=== PATIENT | female | born 1980 | race Caucasian/White ===

== ENCOUNTER 2021-04-20 02:12 | Emergency (ER) | payer BC ==
--- NOTE | 2021-04-20 02:40 | EDM.PDOC ---
ED HPI GENERAL MEDICAL PROBLEM - General Chief Complaint: Abdominal Pain Stated Complaint: ABDOMINAL PAIN/ NAUSEA/ WEAK Time Seen by Provider: 04/20/21 02:34 - History of Present Illness INITIAL COMMENTS - FREE TEXT/NARRATIVE: 40-year-old female presents the emergency room with epigastric pain nausea and discomfort. This is been going on for the last 8 days or so now it is interfering with her sleeping and getting some rest. Her appetite is diminished but no nausea no vomiting she is not had any black or tarry stools. She does not have any clear- cut reflux symptoms. She is not had any breathing difficulties shortness of breath chest pain. She has had no problems with constipation diarrhea no black or tarry stools. She is not aware of problems such as this in the past. No recent abdominal surgeries, however, she has had her gallbladder taken out she has had a hysterectomy and has had C-sections. Epigastric Pain Score (Numeric/FACES): 6 - Related Data Allergies Allergy/AdvReac Type Severity Reaction Status Date / Time codeine Allergy Mild Itching Verified 04/20/21 04:05 Home Meds: Home Meds Hydrocodone/Acetaminophen [HYDROcodone-Acetaminophen 5-325 MG] 1 each PO Q6H PRN #10 tab 04/20/21 [Rx] Ondansetron [Ondansetron ODT] 4 mg PO Q6H PRN #15 tab.rapdis 04/20/21 [Rx] ED ROS GENERAL - Review of Systems Review Of Systems: See Below Constitutional: Denies: Fever, Chills, Fatigue, Night Sweats HEENT: Reports: No Symptoms Respiratory: Reports: No Symptoms Cardiovascular: Reports: No Symptoms GI/Abdominal: Reports: Abdominal Pain, Decreased Appetite. Denies: Bloody Stool, Diarrhea, Difficulty Swallowing, Hematemesis, Hematochezia, Vomiting : Reports: No Symptoms Musculoskeletal: Reports: No Symptoms Neurological: Reports: No Symptoms ED EXAM, GENERAL - Physical Exam Exam: See Below Exam Limited By: No Limitations General Appearance: Alert, No Apparent Distress, Obese Head: Atraumatic, Normocephalic Neck: Normal Inspection, Supple, Non-Tender, Full Range of Motion Respiratory/Chest: No Respiratory Distress, Lungs Clear, Normal Breath Sounds Cardiovascular: Regular Rate, Rhythm, No Edema, No Murmur GI/Abdominal: Normal Bowel Sounds, Soft, Tender (Palpable tenderness limited to the mid epigastric area only). No: Distended, Guarding, Rigid, Rebound Back Exam: No: CVA Tenderness (L), CVA Tenderness (R) Neurological: Alert, Oriented, Normal Cognition Course - Vital Signs Last Recorded V/S: Last Vital Signs Temp 37.1 C 04/20/21 07:39 Pulse 61 04/20/21 07:39 Resp 18 04/20/21 07:39 BP 116/72 04/20/21 07:39 Pulse Ox 97 04/20/21 07:39 - Orders/Labs/Meds Orders: Active Orders 24 hr Category Date Time Status COVID-19/FLU A+B [[facility]] Stat Lab 04/20/21 03:00 Ordered Labs: Laboratory Tests 04/20/21 04/20/21 04/20/21 Range/Units 02:20 02:20 02:34 WBC 8.00 (3.98-10.04) K/mm3 RBC 4.84 (3.98-5.22) M/mm3 Hgb 14.8 (11.2-15.7) gm/dl Hct 43.8 (34.1-44.9) % MCV 90.5 (79.4-94.8) fl MCH 30.6 (25.6-32.2) pg MCHC 33.8 (32.2-35.5) g/dl RDW Std Deviation 39.3 (36.4-46.3) fL Plt Count 364 (182-369) K/mm3 MPV 8.4 L (9.4-12.3) fl Neut % (Auto) 48.6 (34.0-71.1) % Lymph % (Auto) 34.0 (19.3-51.7) % Sawyer % (Auto) 10.6 (4.7-12.5) % Eos % (Auto) 5.6 (0.7-5.8) Baso % (Auto) 0.6 (0.1-1.2) % Neut # (Auto) 3.88 (1.56-6.13) K/mm3 Lymph # (Auto) 2.72 (1.18-3.74) K/mm3 Sawyer # (Auto) 0.85 H (0.24-0.36) K/mm3 Eos # (Auto) 0.45 H (0.04-0.36) K/mm3 Baso # (Auto) 0.05 (0.01-0.08) K/mm3 Sodium 140 (136-145) mEq/L Potassium 4.4 (3.5-5.1) mEq/L Chloride 104 (98-107) mEq/L Carbon Dioxide 24 (21-32) mEq/L Anion Gap 16.4 H (5-15) BUN 14 (7-18) mg/dL Creatinine 0.9 (0.55-1.02) mg/dL Est Cr Clr Drug Dosing 81.61 mL/min Estimated GFR (MDRD) > 60 (>60) mL/min BUN/Creatinine Ratio 15.6 (14-18) Glucose 111 H (70-99) mg/dL Calcium 9.0 (8.5-10.1) mg/dL Total Bilirubin 0.5 (0.2-1.0) mg/dL AST 14 L (15-37) U/L ALT 25 (14-59) U/L Alkaline Phosphatase 69 (46-116) U/L Total Protein 7.2 (6.4-8.2) g/dl Albumin 4.1 (3.4-5.0) g/dl Globulin 3.1 gm/dL Albumin/Globulin Ratio 1.3 (1-2) Lipase 83 (73-393) U/L Influenza Type A RNA Negative (NEGATIVE) Influenza Type B RNA Negative (NEGATIVE) SARS-CoV-2 RNA ([place]) Negative (NEGATIVE) Meds: Medications Discontinued Medications Generic Name Dose Route Start Last Admin Trade Name Freq PRN Reason Stop Dose Admin Hydrocodone Bitart/Acetaminophen 1 tab 04/20/21 05:35 04/20/21 05:51 Acetaminophen/Hydrocodone 325-5 Mg Tab PO 04/20/21 05:36 1 tab ONETIME ONE Administration Al Hydroxide/Mg Hydroxide 30 0 ml 04/20/21 02:46 04/20/21 02:52 ml/ Lidocaine HCl 15 ml PO 04/20/21 02:47 30 ml ONETIME ONE Administration Famotidine 40 mg 04/20/21 05:35 04/20/21 05:50 Famotidine 20 Mg/2 Ml Sdv IVPUSH 04/20/21 05:36 40 mg ONETIME ONE Administration Lactated Ringer's 1,000 mls @ 999 mls/hr 04/20/21 04:58 04/20/21 05:04 Ringers, Lactated IV 04/20/21 05:58 999 mls/hr .BOLUS ONE Administration Ondansetron HCl 4 mg 04/20/21 04:47 04/20/21 04:52 Ondansetron 4 Mg Tab.Dis PO 04/20/21 04:48 4 mg ONETIME ONE Administration Pantoprazole Sodium 40 mg 04/20/21 03:08 04/20/21 03:14 Pantoprazole 40 Mg Vial IVPUSH 04/20/21 03:09 40 mg ONETIME ONE Administration - Re-Assessments/Exams Free Text/Narrative Re-Assessment/Exam: 04/20/21 03:07 Labs ordered attempted a GI cocktail this has not helped she is nauseated 04/20/21 07:06 After the failed GI cocktail labs were nonrevealing. She was given Zofran. IV Protonix however this seemed to cause a headache. She was given IV Pepcid and Ennis and tolerated this she has a allergy to codeine. Codeine reaction was a rash and itching no breathing difficulties or shortness of breath we gave her a Ennis and this helped she is able to keep fluids down headache is much better and her abdominal pain is much better. Departure - Departure Time of Disposition: 07:12 Disposition: Home, Self-Care 01 Clinical Impression: Acute gastroenteritis, Gastritis, Nausea & vomiting - Discharge Information Prescriptions: Hydrocodone/Acetaminophen [HYDROcodone-Acetaminophen 5-325 MG] 1 each PO Q6H PRN #10 tab PRN Reason: Abdominal Pain Ondansetron [Ondansetron ODT] 4 mg PO Q6H PRN #15 tab.rapdis PRN Reason: Nausea/Vomiting Instructions: Nausea and Vomiting, Adult, [id number] Referrals: Jessie Draper PA-C [Primary Care Provider] - Forms: ED Department Discharge, ED Return to Work/School Form Additional Instructions: Return to the emergency room with any questions problems or worsening symptoms. Use the Zofran as needed to control nausea and vomiting for the next day or so use it every 6 hours and then as needed. Use the hydrocodone only as needed for pain take 1 every 6 hours. Allow 12 hours after using this medication before driving or returning to work. 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 This will help your stomach calm down. Sepsis Event Note (ED) - Evaluation Sepsis Screening Result: No Definite Risk - Focused Exam Vital Signs: Vital Signs Temp Pulse Resp BP Pulse Ox 04/20/21 07:39 37.1 C 61 18 116/72 97 04/20/21 02:29 36.6 C 78 18 157/92 H 94 L - My Orders Last 24 Hours: My Active Orders 04/20/21 03:00 COVID-19/FLU A+B [[facility]] Stat - Assessment/Plan Last 24 Hours: My Active Orders 04/20/21 03:00 COVID-19/FLU A+B [[facility]] Stat
[2021-04-20] MEDS ORDERED: Alum Hydrox/Mag Hydrox/Simeth 30 ML, Lidocaine 2% 15 ML PO ONE ×2 (02:46)
[2021-04-20] MEDS ORDERED: Pantoprazole 40 MG Vial IVPUSH ONE (03:08)
[2021-04-20 03:39] LABS: CORONAVIRUS COVID-19 NAA NEGATIVE (NEGATIVE)
[2021-04-20] MEDS ORDERED: Ondansetron 4 MG Tab.DIS PO ONE (04:47)
[2021-04-20] MEDS ORDERED: Lactated Ringers 1,000 ML IV ONE (04:58)
[2021-04-20] MEDS ORDERED: Acetaminophen/HYDROcodone 325-5 MG Tab PO ONE (05:35)
[2021-04-20] MEDS ORDERED: Famotidine 20 MG/2 ML SDV IVPUSH ONE (05:35)
== END 2021-04-20 07:44 | disposition home or self-care (01) ==
LOC: JD.ED 02:12
DX: K52.9 Noninfective gastroenteritis and colitis, unspecified (principal); K29.70 Gastritis, unspecified, without bleeding; Z88.5 Allergy status to narcotic agent; Z20.822 Contact with and (suspected) exposure to COVID-19
CPT/HCPCS: 0240U; 36415; 80053; 83690; 85025; 96374; 96375; 99284; A9270; C9113; J3490; J7120

== ENCOUNTER 2021-05-12 00:49 | Emergency (ER) | payer BC ==
[2021-05-12] MEDS ORDERED: Acetaminophen 325 MG Tab PO ONE (04:11)
[2021-05-12] MEDS ORDERED: Oseltamivir 75 MG Cap PO ONE (04:27)
== END 2021-05-12 06:00 | disposition home or self-care (01) ==
LOC: JD.ED 00:49
DX: J10.1 Influenza due to other identified influenza virus with other respiratory manifestations (principal); Z88.5 Allergy status to narcotic agent
CPT/HCPCS: 71046; 87635; 87651; 87804; 87807; 99284; A9270; U0002

== ENCOUNTER 2021-12-22 09:51 | Emergency (ER) | payer BC ==
[2021-12-22] MEDS ORDERED: Ondansetron 4 MG/2 ML SDV IVPUSH ONE (11:06)
[2021-12-22] MEDS ORDERED: Sodium Chloride 0.9% 10 ML Syringe FLUSH PRN ×2 (11:06→11:30)
[2021-12-22] MEDS ORDERED: Sodium Chloride 0.9% 1,000 ML IV STA (11:06)
[2021-12-22] MEDS ORDERED: HYDROmorphone 0.5 MG/0.5 ML Syringe IVPUSH ONE (11:06)
[2021-12-22] MEDS ORDERED: Iopamidol 612 MG/ML 100 ML Bottle IVPUSH ONE (11:30)
[2021-12-22 11:37] LABS: ESTIMATED GFR 112 mL/min (>60)
[2021-12-22] MEDS ORDERED: Tamsulosin 0.4 MG Cap.ER PO ONE (12:13)
== END 2021-12-22 12:35 | disposition home or self-care (01) ==
LOC: JD.ED 09:51
DX: N20.0 Calculus of kidney (principal); Z88.5 Allergy status to narcotic agent; Z79.899 Other long term (current) drug therapy; Z86.16 Personal history of COVID-19; Z90.49 Acquired absence of other specified parts of digestive tract; Z90.710 Acquired absence of both cervix and uterus
CPT/HCPCS: 36415; 74177; 80053; 81001; 85025; 86140; 96361; 96374; 96375; 99284; A9270; J1170; J2405; J3490; J7030; Q9967

== ENCOUNTER 2022-05-30 13:49 | Emergency (ER) | payer BC ==
[2022-05-30] MEDS ORDERED: Lactated Ringers 1,000 ML IV ONE (15:10)
[2022-05-30] MEDS ORDERED: Morphine 4 MG/ML Syringe IVPUSH ONE (15:10)
[2022-05-30] MEDS ORDERED: Ondansetron 4 MG/2 ML SDV IVPUSH ONE (15:10)
[2022-05-30] MEDS ORDERED: fentaNYL 100 MCG/2 ML SDV IVPUSH ONE (17:19)
[2022-05-30] MEDS ORDERED: Iopamidol 755 Mg/ML 100 ML Bottle IVPUSH ONE (17:24)
[2022-05-30] MEDS ORDERED: Sodium Chloride 0.9% 50 ML IV SCH (17:30)
[2022-05-30] MEDS ORDERED: Sodium Chloride 0.9% 1,000 ML IV ONE (17:58)
[2022-05-30] MEDS ORDERED: cefTRIAXone 2 GM in Sodium Chloride 0.9% 100 ML IV ONE (18:06)
== END 2022-05-30 19:35 | disposition home or self-care (01) ==
LOC: JD.ED 13:49
DX: N39.0 Urinary tract infection, site not specified (principal); Z88.5 Allergy status to narcotic agent; Z79.899 Other long term (current) drug therapy
CPT/HCPCS: 36415; 74177; 80053; 81001; 83605; 83690; 85025; 87086; 87088; 87186; 96361; 96365; 96375; 99284; J0696; J2270; J2405; J3010; J7030; J7120; Q9967